=== PATIENT | female | born 1940 | race Hispanic/Latino ===

== ENCOUNTER 2017-05-08 12:22 | Day surgery (SDC) | payer MEDICARE ==
[2017-05-03 12:35] VITALS: BMI 28.1
[2017-05-08 13:16] LABS: BASO # 0.05 K/mm3 (0.0-2.0); BASO % 0.4 % (0.0-3.0); EOS # 0.2 (0.0-0.7); EOS % 1.6 % (1.5-5.0); GRAN # 8.65 (1.4-6.5); GRAN % 72.8 % (50.0-68.0); HEMOGLOBIN 10.4 g/dL (12.0-16.0); LYMPH # 2.4 (1.2-3.4); LYMPH % 20.1 % (22.0-35.0); MEAN CELL VOLUME 83.8 fl (80.0-105.0); MEAN CORPUSCULAR HEMOGLOBIN 26.3 pg (25.0-35.0); MEAN CORPUSCULAR HGB CONC 31.3 g/dl (31.0-37.0); MEAN PLATELET VOLUME 9.2 fl (7.0-11.0); MONO # 0.6 (0.1-0.6); MONO % 5.1 % (1.0-6.0); RBC 3.96 10^6/uL (3.5-6.1); RED CELL DISTRIBUTION WIDTH 14.9 % (11.5-14.5); WHITE BLOOD COUNT 11.9 10^3/ul (4.5-11.0)
[2017-05-08 13:24] LABS: CALCIUM 11.1 mg/dL (8.4-10.5)
[2017-05-08 13:31] LABS: INR 1.02 (0.93-1.08); PROTHROMBIN TIME 11.7 SECONDS (9.4-12.5)
[2017-05-08] MEDS ORDERED: Midazolam 2 MG/2 ML VIAL ONE (14:52)
[2017-05-08] MEDS ORDERED: Lidocaine 2% Inj (20ml) ONE (14:59)
[2017-05-08] MEDS ORDERED: Oxycodone/Acetaminophen 5/325 mg Tab PO PRN (15:24)
[2017-05-08] MEDS ORDERED: Sodium Chloride 0.45% 1,000 ML IV SCH (15:30)
[2017-05-08 15:51] VITALS: O2SAT 98
[2017-05-08 16:27] VITALS: BP 133/80; PULSE 77; RESP 18; TEMP 97.9
--- NOTE | 2017-05-08 16:44 | RAD ---
HISTORY: Right lung biopsy. COMPARISON: 04/15/2017 chest radiograph FINDINGS: LUNGS: Known mass in the right lower lobe is not visualized on the current study. PLEURA: No pneumothorax following CT-guided biopsy. CARDIOVASCULAR: Normal. OSSEOUS STRUCTURES: No significant abnormalities. VISUALIZED UPPER ABDOMEN: Normal. OTHER FINDINGS: None. IMPRESSION: No adverse findings/ no pneumothorax identified following right lung biopsy.
--- NOTE | 2017-05-08 17:28 | CT ---
PROCEDURE: CT guided right lower lobe lung biopsy. HISTORY: 7 cm right lower lobe lung mass. Previous smoking. Evaluate for malignancy PHYSICIAN(S): Lui Macdonald MD. TECHNIQUE: The relative risks and indications of the procedure were explained to the patient and consent obtained. The patient was placed prone on the CT scanner and preliminary images through the lung bases obtained. Conscious sedation and monitoring were provided throughout the procedure by a nurse. There is a 7 cm mass in the right lower lobe posteriorly and medially with subtle calcification. An associated right pleural effusion and thickening is noted.. A right posterior approach was selected and the area prepped and draped in the usual sterile fashion. 1% Xylocaine was used to anesthetize the skin and soft tissues. A 19 gauge guiding needle was advanced into the 7 cm right lower lobe lung mass. Its position was confirmed with CT. Using coaxial technique, multiple core biopsies were obtained. The postprocedure images show no evidence of large pneumothorax or significant hemorrhage.. IMPRESSION: 1. CT-guided right lower lobe lung biopsy as described above.
== END 2017-05-08 17:46 | disposition home or self-care (01) ==
LOC: SDS 12:22
PROVIDERS: ATTEND Radiology Vascular & Interventional Radiology
DX: C34.31 Malignant neoplasm of lower lobe, right bronchus or lung (principal); I10 Essential (primary) hypertension; Z87.891 Personal history of nicotine dependence; E11.9 Type 2 diabetes mellitus without complications; E78.00 Pure hypercholesterolemia, unspecified; H40.9 Unspecified glaucoma; Z88.0 Allergy status to penicillin; Z91.041 Radiographic dye allergy status; Z90.710 Acquired absence of both cervix and uterus
CPT/HCPCS: 32405; 36415; 71045; 77012; 80048; 85025; 85610; 85730; 88305; J2250; J2405; J3010; J7030

== ENCOUNTER 2017-06-04 12:21 | Day surgery (SDC) | payer MEDICARE ==
[2017-05-31 13:57] VITALS: BMI 26.6
[2017-06-04 12:47] LABS: BASO # 0.06 K/mm3 (0.0-2.0); BASO % 0.5 % (0.0-3.0); EOS # 0.2 (0.0-0.7); EOS % 1.6 % (1.5-5.0); GRAN % 73.9 % (50.0-68.0); HEMOGLOBIN 10.5 g/dL (12.0-16.0); LYMPH # 2.3 (1.2-3.4); LYMPH % 18.8 % (22.0-35.0); MEAN CORPUSCULAR HEMOGLOBIN 25.9 pg (25.0-35.0); MEAN CORPUSCULAR HGB CONC 30.9 g/dl (31.0-37.0); MONO # 0.6 (0.1-0.6); MONO % 5.2 % (1.0-6.0); RBC 4.05 10^6/uL (3.5-6.1); RED CELL DISTRIBUTION WIDTH 15.2 % (11.5-14.5); WHITE BLOOD COUNT 12.2 10^3/ul (4.5-11.0)
[2017-06-04 13:00] LABS: PROTHROMBIN TIME 11.8 SECONDS (9.4-12.5)
[2017-06-04 13:01] LABS: CALCIUM 11.7 mg/dL (8.4-10.5); INR 1.03 (0.93-1.08); PARTIAL THROMBOPLASTIN TIME 30.4 Seconds (25.1-36.5)
[2017-06-04] MEDS ORDERED: Lidocaine 2% Inj (20ml) ONE (15:13)
[2017-06-04] MEDS ORDERED: HEPARIN SODIUM/NS 1,000 ML IV ONE (15:13)
[2017-06-04] MEDS ORDERED: Midazolam 2 MG/2 ML VIAL ONE (15:19)
[2017-06-04] MEDS ORDERED: Vancomycin 500 mg (Oral/Rectal USE) ONE (15:19)
[2017-06-04] MEDS ORDERED: Oxycodone/Acetaminophen 5/325 mg Tab PO PRN (16:17)
[2017-06-04 16:22] VITALS: O2SAT 98
[2017-06-04] MEDS ORDERED: Sodium Chloride 0.45% 1,000 ML IV SCH (16:30)
[2017-06-04 16:47] VITALS: BP 138/76; PULSE 80; RESP 16; TEMP 98.8
--- NOTE | 2017-06-04 17:58 | VASCULAR ---
PROCEDURE: Ultrasound and fluoroscopic right internal jugular venous access port. CLINICAL HISTORY: Lung carcinoma.Venous port for chemotherapy. PHYSICIAN(S): Lui Macdonald M.D. TECHNIQUE: The relative risks and indications of the procedure were explained to the patient and her daughter and consent obtained. The patient was placed supine on the arteriogram table and the right neck and chest prepped and draped in the usual sterile fashion. Conscious sedation monitoring was provided throughout the procedure by a nurse. Antibiotics were given prior to the procedure. Under direct ultrasound guidance, the right internal jugular vein was punctured with a micro-puncture set. A 0.035 angled Glidewire was advanced into the IVC. A 4 cm incision was made chest below the right clavicle and the pocket blunted dissected. A 8 Turkish single-lumen catheter, 18 cm long, was advanced to the SVC/RA junction. The catheter was trimmed and attached to the port. The port aspirates and injects easily. The port was placed in the pocket and closed in 2 layers. The patient tolerated the procedure well. IMPRESSION: Ultrasound and fluoroscopically placed right internal jugular venous access port.
== END 2017-06-04 17:45 | disposition home or self-care (01) ==
LOC: SDSVAS 12:21
PROVIDERS: ATTEND Radiology Vascular & Interventional Radiology
DX: Z45.2 Encounter for adjustment and management of vascular access device (principal); C34.90 Malignant neoplasm of unspecified part of unspecified bronchus or lung; I10 Essential (primary) hypertension; Z87.891 Personal history of nicotine dependence; E03.9 Hypothyroidism, unspecified; E11.9 Type 2 diabetes mellitus without complications; D64.9 Anemia, unspecified; Z90.710 Acquired absence of both cervix and uterus; Z88.0 Allergy status to penicillin; Z88.8 Allergy status to other drugs, medicaments and biological substances; Z91.041 Radiographic dye allergy status
CPT/HCPCS: 36415; 36561; 76937; 77001; 80048; 85025; 85610; 85730; 99152; C1769; C1788; J1644; J2250; J2405; J3010; J7030

== ENCOUNTER 2018-04-26 16:28 | Emergency (ER) | payer MEDICARE, OTHER ==
[2018-04-26 17:09] VITALS: BMI 26.3
[2018-04-26] MEDS ORDERED: Oxymetazoline 0.05% Nasal Spray (30 ml) NS STA (17:17)
--- NOTE | 2018-04-26 17:26 | ED PDOC ---
Arrival/HPI - General Chief Complaint: Trauma Time Seen by Provider: 04/26/18 17:15 Historian: Patient - History of Present Illness Narrative History of Present Illness (Text): 04/26/18 17:22 A 77 year old female, whose past medical history includes lung cancer, presents to the emergency department s/p fall from earlier today. Patient reports she fell in her home and fell on her head. Patient denies any loss of consciousness, shortness of breath, chest pain, or any other complaints. tripped on coffee table. PMD: Dr. Cardona 04/26/18 22:33 Time/Duration: 4-6 hours (earlier today) Symptom Onset: Sudden Symptom Course: Unchanged Activities at Onset: Light Context: Home Past Medical History - Provider Review Nursing Documentation Reviewed: Yes - Infectious Disease Hx of Infectious Diseases: None - Cardiac Hx Cardiac Disorders: Yes Hx Hypertension: Yes - Pulmonary Hx Pneumonia: Yes - Neurological Hx Paralysis: No - Endocrine/Metabolic Hx Diabetes Mellitus Type 2: Yes - Hematological/Oncological Hx Cancer: Yes (lung ca) - Musculoskeletal/Rheumatological Hx Musculoskeletal Disorders: No - Psychiatric Hx Emotional Abuse: No Hx Physical Abuse: No Hx Substance Use: No - Surgical History Hx Hysterectomy: Yes Other/Comment: "eye surgery". two benign lumps from bilteral breasts - Anesthesia Hx Anesthesia Reactions: No Hx Malignant Hyperthermia: No - Suicidal Assessment Feels Threatened In Home Enviroment: No Family/Social History - Physician Review Nursing Documentation Reviewed: Yes Family/Social History: No Known Family HX Smoking Status: Former Smoker Hx Alcohol Use: No Hx Substance Use: No Hx Substance Use Treatment: No Allergies/Home Meds Allergies/Adverse Reactions: Allergies Iodine and Iodide Containing Produc Allergy (Verified 02/05/18 10:55) RASH Penicillins Allergy (Verified 02/05/18 10:55) RASH CONTRAST MEDIA Allergy (Uncoded 02/05/18 10:55) RASH Home Medications: Home Meds Medication Instructions Recorded Confirmed RX: Amlodipine Besylate 10 mg PO DAILY 02/07/12 04/03/18 Bimatoprost [Lumigan 2.5 ml] 1 drop BOTHEYES HS 11/11/14 04/03/18 Acarbose [Precose] 25 mg PO DAILY 05/03/17 04/03/18 RX: Lisinopril [Zestril] 20 mg PO DAILY 05/03/17 04/03/18 RX: Metoprolol Succinate XL 100 mg PO DAILY 05/03/17 04/03/18 [Toprol XL] Crestor 20 mg PO DAILY 06/13/17 04/03/18 Brimonidine Tartrate/Timolol 1 drop OU BID 07/04/17 04/03/18 [Combigan 0.2%-0.5% Eye Drops] Ergocalciferol (Vitamin D2) 2,000 units PO DAILY 07/04/17 04/03/18 [Vitamin D2] Ferrous Sulfate [Feosol] 324 mg PO TID 07/04/17 04/03/18 Loratadine 10 mg PO DAILY 07/04/17 04/03/18 Losartan Potassium 100 mg PO DAILY 07/04/17 04/03/18 Magnesium 200 mg PO TID 07/04/17 04/03/18 Levothyroxine [Synthroid] 100 mcg PO DAILY 09/25/17 04/03/18 Insulin Aspart [Novolog] 100 unit SC DAILY 04/03/18 04/03/18 Insulin Glargine,Hum.rec.anlog 100 unit SQ DAILY 04/03/18 04/03/18 [Basaglar Kwikpen U-100] RX: Folic Acid 1 mg PO DAILY 04/03/18 04/03/18 RX: Ondansetron ODT [Zofran ODT] 8 mg PO DAILY 04/03/18 04/03/18 Review of Systems - Physician Review All systems were reviewed & negative as marked: Yes - Review of Systems Respiratory: absent: SOB Cardiovascular: absent: Chest Pain Neurological: absent: Other (no loss of consciousness) Physical Exam Vital Signs Reviewed: Yes Temperature: Afebrile Blood Pressure: Normal Pulse: Tachycardic Respiratory Rate: Normal Mental Status: Positive for: Alert and Oriented X 3 - Systems Exam Head: Present: Atraumatic, Normocephalic Pupils: Present: PERRL Extroacular Muscles: Present: EOMI Conjunctiva: Present: Normal Nose (External): Present: Other (swelling to bridge of nose. left sided nare blood clot appreciated, no active bleeding ) Respiratory/Chest: Present: Clear to Auscultation, Good Air Exchange. No: Respiratory Distress, Accessory Muscle Use Cardiovascular: Present: Regular Rate and Rhythm, Normal S1, S2. No: Murmurs Abdomen: No: Tenderness, Distention, Peritoneal Signs Upper Extremity: Present: Normal Inspection. No: Cyanosis, Edema Lower Extremity: Present: Normal Inspection. No: Edema Neurological: Present: GCS=15, CN II-XII Intact, Speech Normal Skin: Present: Warm, Dry, Other (contusion to inferior left orbit) Psychiatric: Present: Alert, Oriented x 3, Normal Insight, Normal Concentration Medical Decision Making ED Course and Treatment: 04/26/18 17:26 Impression: 77 year old female presents to the emergency department s/p fall. Plan: -- CT of maxillofacial without contrast -- Head CT without contrast -- Afrin -- Reassess and disposition Prior Visits: Notes and results from previous visits were reviewed. Progress Notes: 04/26/18 22:33 hemostatis acheived s/p afrin. imaging neg for intracranil bleed. notified of nasal fx. no foreign body clinically. - RAD Interpretation Radiology Orders: 04/26/18 17:17 HEAD W/O CONTRAST [CT] Stat MAXILLOFACIAL W/O CONTRAST [CT] Stat - Medication Orders Current Medication Orders: Discontinued Medications Oxymetazoline HCl (Afrin 0.05%) 1 ml NS STAT STA Stop: 04/26/18 17:18 - Scribe Statement The provider has reviewed the documentation as recorded by the Lexis aMrlow All medical record entries made by the Scribe were at my direction and personally dictated by me. I have reviewed the chart and agree that the record accurately reflects my personal performance of the history, physical exam, medical decision making, and the department course for this patient. I have also personally directed, reviewed, and agree with the discharge instructions and disposition. Disposition/Present on Arrival - Present on Arrival Any Indicators Present on Arrival: No History of DVT/PE: No History of Uncontrolled Diabetes: No Urinary Catheter: No History of Decub. Ulcer: No History Surgical Site Infection Following: None - Disposition Have Diagnosis and Disposition been Completed?: Yes Diagnosis: Fall, Nasal fracture Disposition: HOME/ ROUTINE Disposition Time: 19:00 Condition: STABLE Discharge Instructions (ExitCare): Nose Fracture, Preventing Falls in the Older Adult Additional Instructions: return to er with worsening symptoms or concerns. Referrals: Rex Calixto DO [Staff Provider] - Follow up with primary Forms: [employer] (Indonesian)
[2018-04-26 17:35] VITALS: RESP 18
--- NOTE | 2018-04-26 18:47 | CT ---
Date of service: 04/26/2018 PROCEDURE: CT HEAD WITHOUT CONTRAST. HISTORY: trauma COMPARISON: None available. TECHNIQUE: Axial computed tomography images were obtained through the head/brain without intravenous contrast. Radiation dose: Total exam DLP = 1082.1 mGy-cm. This CT exam was performed using one or more of the following dose reduction techniques: Automated exposure control, adjustment of the mA and/or kV according to patient size, and/or use of iterative reconstruction technique. FINDINGS: HEMORRHAGE: No intracranial hemorrhage. BRAIN: Diffuse atrophy with prominence of the ventricles and sulci noted. No mass effect or edema. Intracranial atherosclerosis. Moderate periventricular and subcortical white matter hypodensities, which are nonspecific, but often seen with chronic microvascular ischemic disease. Please note that MRI with diffusion imaging is more sensitive in the detection of acute ischemic event. VENTRICLES: No hydrocephalus. CALVARIUM: Unremarkable. PARANASAL SINUSES: Mucosal thickening of the ethmoid air cells. MASTOID AIR CELLS: Unremarkable as visualized. No inflammatory changes. OTHER FINDINGS: Bilateral acute nasal bone fracture deformities. IMPRESSION: Bilateral acute nasal bone fracture deformities. Moderate nonspecific white matter changes.
--- NOTE | 2018-04-26 18:55 | CT ---
Date of service: 04/26/2018 CT maxillofacial bones without IV contrast Indication: trauma Comparison: Noncontrast head CT performed the same day Technique: Axial computed tomography images were obtained of the maxillofacial bones without the use of intravenous contrast. Coronal and sagittal reformatted images were generated and reviewed. This CT exam was performed using 1 or more of the following dose reduction techniques: Automated exposure control, adjustment of the MAA and/or kV according to patient size, and/or use of iterative reconstruction technique. Radiation dose: Total exam DLP = 821.77 mGy-cm. Findings: Bilateral displaced nasal bone fracture deformities and associated soft tissue swelling. 3 mm radiopaque focus at the superficial skin surface of the no is presumably debris. Correlate with physical examination. The remainder of the visualized facial bones appear unremarkable without acute displaced fracture. Nasal septum is deviated to the left. The orbits appear unremarkable. The temporomandibular joints appear located. The mastoid air cells appear clear. The paranasal sinuses appear clear. The visualized brain appears unremarkable. The soft tissues appear unremarkable. Impression: Bilateral displaced nasal bone fracture deformities and associated soft tissue swelling. 3 mm radiopaque focus at the superficial skin surface of the no is presumably debris. Correlate with physical examination.
[2018-04-26 19:13] VITALS: BP 110/51; PULSE 71; TEMP 98.2; O2SAT 99
== END 2018-04-26 19:08 | disposition home or self-care (01) ==
LOC: ED 16:28
DX: S02.2XXA Fracture of nasal bones, initial encounter for closed fracture (principal); W19.XXXA Unspecified fall, initial encounter; Y92.009 Unspecified place in unspecified non-institutional (private) residence as the place of occurrence of the external cause; I10 Essential (primary) hypertension; E11.9 Type 2 diabetes mellitus without complications; Z87.891 Personal history of nicotine dependence; Z85.118 Personal history of other malignant neoplasm of bronchus and lung

== ENCOUNTER 2018-05-30 05:03 | Outpatient (CLI) | payer MEDICARE, OTHER | END 2018-05-30 05:04 | disposition home or self-care (01) | LOC: PET-BROA 05:03 ==

== ENCOUNTER 2018-06-03 10:13 | Outpatient (CLI) | payer MEDICARE, OTHER | END 2018-06-03 10:14 | disposition home or self-care (01) | LOC: LAB 10:13 ==

== ENCOUNTER 2018-08-07 13:28 | Outpatient (CLI) | payer MEDICARE, OTHER | END 2018-08-07 13:29 | disposition home or self-care (01) | LOC: RAD 13:28 ==